=== PATIENT | male | born 1970 | race Caucasian/White ===

== ENCOUNTER 2017-02-25 01:19 | Emergency (ER) | payer OTHER ==
[2017-02-25] MEDS ORDERED: Naproxen 500 MG TAB ONE (02:06)
[2017-02-25] MEDS ORDERED: HYDROcodone/Acetaminophen 10/325 mg Tablet ONE (02:06)
[2017-02-25] MEDS ORDERED: Diazepam 5 MG TAB ONE (02:06)
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
== END 2017-02-25 02:48 | disposition home or self-care (01) ==
LOC: MADERS 01:19
DX: S39.012A Strain of muscle, fascia and tendon of lower back, initial encounter (principal); I10 Essential (primary) hypertension; Z87.891 Personal history of nicotine dependence; X50.9XXA Other and unspecified overexertion or strenuous movements or postures, initial encounter; Y93.02 Activity, running
CPT/HCPCS: 72131

== ENCOUNTER 2017-05-06 21:48 | Emergency (ER) | payer OTHER | END 2017-05-06 22:22 | disposition home or self-care (01) | LOC: MADERS 21:48 | DX: J11.1 Influenza due to unidentified influenza virus with other respiratory manifestations (principal); I10 Essential (primary) hypertension; Z87.891 Personal history of nicotine dependence; Z79.899 Other long term (current) drug therapy | CPT/HCPCS: 99283 ==

== ENCOUNTER 2017-06-17 09:00 | Emergency (ER) | payer OTHER ==
[2017-06-17] MEDS ORDERED: Ketorolac Tromethamine 60 MG/2 ML VIAL ONE (09:35)
--- NOTE | 2017-06-17 09:43 | RAD ---
PORTABLE CHEST: Date: 06/17/17 HISTORY: Chest pain. FINDINGS: Heart size and mediastinum are within normal limits. The lungs are clear of infiltrates. No significa nt bony findings. IMPRESSION: No active intrathoracic disease. POS: [facility]
[2017-06-17 09:46] LABS: #Basophils 0.1 thou/uL (0.0-0.2); #Eosinphils 0.1 thou/uL (0.0-0.7); #Lymphocytes 1.4 thou/uL (1.20-3.40); #Monocytes 0.7 thou/uL (0.11-0.59); #Neutrophils 4.1 thou/uL (1.40-6.50); %Basophils 0.9 % (0.0-1.0); %Eosinophils 1.3 % (0.0-10.0); %Lymphocytes 22.4 % (21.0-51.0); %Monocytes 10.3 % (0.0-10.0); Hemoglobin 16.1 g/dL (14.0-18.0); Mean Corpuscular HGB CONC 34.3 g/dL (32.0-36.0); Mean Corpuscular Hemoglobin 30.9 pg (27.0-31.0); Mean Corpuscular Volume 90.2 fl (80.0-94.0); Mean Platelet Volume 7.3 fL (7.4-10.4); Platelet Count 238 thou/uL (130-400); RBC Distribution Width 10.9 % (11.5-14.5); Red Blood Cell (RBC) Count 5.19 mill/uL (4.70-6.10); White Blood Cell (WBC) Count 6.4 thou/uL (4.8-10.8)
[2017-06-17 10:02] LABS: ALT (SGPT) 29 U/L (8-55); AST (SGOT) 20 U/L (5-34); Albumin 4.3 g/dL (3.5-5.0); Alkaline Phosphatase 66 U/L (40-150); Anion Gap 13 mmol/L (10-20); BUN (Urea Nitrogen) 9 mg/dL (8.9-20.6); Calc. Creatinine Clearance 0 mL/min (70-130); Calcium 10.1 mg/dL (7.8-10.44); Carbon Dioxide 25 mmol/L (22-29); Chloride 105 mmol/L (98-107); Estimated GFR-MDRD Greater than 90; Globulin 3.1 g/dL (2.4-3.5); Glucose 106 mg/dL (70-105); Lipase 49 U/L (8-78); Potassium 4.4 mmol/L (3.5-5.1); Protein, Total 7.4 g/dL (6.0-8.3); Sodium 139 mmol/L (136-145)
--- NOTE | 2017-06-17 10:24 | ULT ---
GALLBLADDER ULTRASOUND: Date: 06/17/17 HISTORY: Right upper quadrant pain. FINDINGS: The liver demonstrates increased echogenicity consistent with fatty infiltration. No focal mass or in trahepatic ductal dilatation is seen. No gallstones, gallbladder wall thickening, or pericholecystic fluid is seen. The common duct measures 5.0 mm in diameter. The right kidney and visualized portions of the pancreas are unremarkable. No free fluid is seen in Morison's pouch. The repair miller reports a positive Desouza's sign. IMPRESSION: 1. Fatty liver. 2. No evidence of cholelithiasis. 3. Positive Desouza's sign reported by repair miller. If there is concern for acute cholecystitis, furt her evaluation with HIDA scan should be performed. POS: [facility]
[2017-06-17 10:29] LABS: Bilirubin Negative (Negative); Blood, Urine Negative (Negative); Clarity Clear (Clear); Glucose, Urine (Dipstick) Negative (Negative); Leukocyte Negative (Negative); Nitrite Negative (Negative); Protein, Urine (Dipstick) Negative (Neg-Trace); Specific Gravity, Urine 1.025 (1.005-1.030); Urobilinogen 0.2 mg/dL (0.2-1.0)
== END 2017-06-17 10:30 | disposition home or self-care (01) ==
LOC: MADERS 09:00
DX: K82.8 Other specified diseases of gallbladder (principal); I10 Essential (primary) hypertension; Z79.899 Other long term (current) drug therapy
CPT/HCPCS: 71045; 76705; 80053; 81003; 83690; 85025; 96372; J1885

== ENCOUNTER 2019-06-07 08:12 | Emergency (ER) | payer OTHER ==
[2019-06-07 09:23] LABS: #Basophils 0.1 thou/uL (0.0-0.2); #Eosinphils 0.1 thou/uL (0.0-0.7); #Lymphocytes 1.4 thou/uL (1.20-3.40); #Monocytes 0.6 thou/uL (0.11-0.59); %Eosinophils 1.4 % (0.0-10.0); %Lymphocytes 22.6 % (21.0-51.0); %Monocytes 10.2 % (0.0-10.0); %Neutrophils 63.8 % (42.0-75.0); Hemoglobin 16.9 g/dL (14.0-18.0); Mean Corpuscular HGB CONC 32.2 g/dL (32.0-36.0); Mean Corpuscular Hemoglobin 29.3 pg (27.0-31.0); Mean Corpuscular Volume 90.9 fL (78.0-98.0); Mean Platelet Volume 7.8 fL (7.4-10.4); Platelet Count 239 thou/uL (130-400); RBC Distribution Width 10.9 % (11.5-14.5); Red Blood Cell (RBC) Count 5.78 mill/uL (4.70-6.10); White Blood Cell (WBC) Count 6.2 thou/uL (4.8-10.8)
[2019-06-07 09:38] LABS: ALT (SGPT) 94 U/L (8-55); AST (SGOT) 38 U/L (5-34); Albumin 4.6 g/dL (3.5-5.0); Alkaline Phosphatase 77 U/L (40-110); Anion Gap 14 mmol/L (10-20); BUN (Urea Nitrogen) 7 mg/dL (8.9-20.6); Bilirubin, Total 0.6 mg/dL (0.2-1.2); Calc. Creatinine Clearance 0 mL/min (70-130); Calcium 10.9 mg/dL (7.8-10.44); Carbon Dioxide 29 mmol/L (22-29); Chloride 101 mmol/L (98-107); Estimated GFR-MDRD 89; Globulin 3.3 g/dL (2.4-3.5); Glucose 94 mg/dL (70-105); Lipase 55 U/L (8-78); Potassium 4.3 mmol/L (3.5-5.1); Protein, Total 7.9 g/dL (6.0-8.3); Sodium 140 mmol/L (136-145)
[2019-06-07] MEDS ORDERED: Sodium Chloride 0.9% 1,000 ML ONE (09:42)
[2019-06-07] MEDS ORDERED: Morphine 4 MG/ML VIAL ONE (09:42)
[2019-06-07 10:10] LABS: Bilirubin Negative (Negative); Blood, Urine Negative (Negative); Clarity Clear (Clear); Glucose, Urine (Dipstick) Negative (Negative); Leukocyte Negative (Negative); Nitrite Negative (Negative); Protein, Urine (Dipstick) Negative (Neg-Trace); Urobilinogen 0.2 mg/dL (Less than 2)
[2019-06-07] MEDS ORDERED: Iopamidol 370 76% 100 ML VIAL ONE (10:20)
--- NOTE | 2019-06-07 11:34 | CT ---
EXAM: Abdomen and pelvic CT scan with contrast: HISTORY: Right upper quadrant abdominal pain COMPARISON: None FINDINGS: The visualized lung bases are clear. Liver: Unremarkable. Gallbladder:Minimal increased attenuation density at the neck of the gallbladder possibly just a gall bladder fold although be difficult to exclude a small gallstone but no CT evidence for acute cholecystitis. Pancreas:Unremarkable Spleen:Unremarkable. Adrenal glands:Unremarkable. Kidneys:No renal calculus or acute obstruction. No solid or cystic renal mass. No evidence for bowel obstruction. No CT evidence for acute appendicitis. The urinary bladder is unremarkable. Reproductive system:Unremarkable No abscess, adenopathy, or abnormal fluid collection within the abdomen or pelvis. Bilateral fat-containing inguinal hernias. IMPRESSION: No significant acute process. Findings as above.
== END 2019-06-07 12:05 | disposition short-term general hospital (02) ==
LOC: MADERS 08:12
DX: R10.11 Right upper quadrant pain (principal); F43.10 Post-traumatic stress disorder, unspecified; I10 Essential (primary) hypertension; Z79.1 Long term (current) use of non-steroidal anti-inflammatories (NSAID); Z79.899 Other long term (current) drug therapy
CPT/HCPCS: 36415; 74177; 80053; 81003; 83605; 83690; 85025; 96374; J2270; J7050; Q9967

== ENCOUNTER 2021-09-22 20:28 | Emergency (ER) | payer OTHER ==
[2021-09-22] MEDS ORDERED: Boostrix 0.5 ML (Tdap) VIAL ONE (21:43)
[2021-09-22] MEDS ORDERED: Ibuprofen 800 MG TAB ONE (21:52)
== END 2021-09-22 22:00 | disposition home or self-care (01) ==
LOC: MADERS 20:28
DX: S46.012A Strain of muscle(s) and tendon(s) of the rotator cuff of left shoulder, initial encounter (principal); S00.83XA Contusion of other part of head, initial encounter; S10.91XA Abrasion of unspecified part of neck, initial encounter; Y04.0XXA Assault by unarmed brawl or fight, initial encounter; Z23 Encounter for immunization; I10 Essential (primary) hypertension; Z79.899 Other long term (current) drug therapy
CPT/HCPCS: 90471; 90715

== ENCOUNTER 2022-06-01 12:55 | Emergency (ER) | payer OTHER ==
[2022-06-01 13:29] LABS: #Basophils 0.1 thou/uL (0.0-0.2); #Lymphocytes 1.6 thou/uL (1.20-3.40); #Monocytes 0.5 thou/uL (0.11-0.59); %Eosinophils 0.7 % (0.0-10.0); %Lymphocytes 25.8 % (21.0-51.0); %Monocytes 8.3 % (0.0-10.0); %Neutrophils 64.2 % (42.0-75.0); Hemoglobin 16.5 g/dL (14.0-18.0); Mean Corpuscular HGB CONC 34.2 g/dL (32.0-36.0); Mean Corpuscular Hemoglobin 30.6 pg (27.0-31.0); Mean Corpuscular Volume 89.6 fl (78.0-98.0); Mean Platelet Volume 6.4 fL (7.4-10.4); Platelet Count 213 10x3/uL (130-400); RBC Distribution Width 10.2 % (11.5-14.5); Red Blood Cell (RBC) Count 5.39 mill/uL (4.70-6.10); White Blood Cell (WBC) Count 6.2 10x3/uL (4.8-10.8)
[2022-06-01 13:44] LABS: ALT (SGPT) 21 U/L (8-55); AST (SGOT) 16 U/L (5-34); Albumin 4.6 g/dL (3.5-5.0); Alkaline Phosphatase 63 U/L (40-110); Anion Gap 17 mmol/L (10-20); BUN (Urea Nitrogen) 9 mg/dL (8.4-25.7); Calc. Creatinine Clearance 0 mL/min (70-130); Calcium 10.2 mg/dL (7.8-10.44); Carbon Dioxide 25 mmol/L (22-29); Chloride 103 mmol/L (98-107); Estimated GFR 88; Globulin 2.7 g/dL (2.4-3.5); Glucose 134 mg/dL (70-105); Potassium 3.9 mmol/L (3.5-5.1); Protein, Total 7.3 g/dL (6.0-8.3); Sodium 141 mmol/L (136-145)
[2022-06-01 13:45] LABS: Acetaminophen Less than 10.0 mcg/mL (10.0-30.0); Alcohol Less than 10 mg/dL (Less than 10); Magnesium 2.1 mg/dL (1.6-2.6); Salicylate Less than 8.0 mg/dL (15.0-30.0)
[2022-06-01 14:00] LABS: Bilirubin Negative (Negative); Blood, Urine Negative (Negative); Clarity Clear (Clear); Glucose, Urine (Dipstick) Negative (Negative); Ketone, Urine Negative (Negative); Leukocyte Negative (Negative); Nitrite Negative (Negative); Protein, Urine (Dipstick) Negative (Neg-Trace); Urobilinogen 0.2 mg/dL (Less than 2)
[2022-06-01 14:00] LABS: Base Excess-Venous 3.7 mmol/L (-2.0 to 3.0); Bicarbonate (HCO3v) 29.6 mmol/L (22.0-28.0); CO2 Tension (PvCO2) 47.8 mmHg (42.0-51.0); Calcium, Ionized 1.24 mmol/L (1.15-1.33); Chloride 105 mmol/L (98-107); Hemoglobin - Calc 17.5 g/dL (14.0-18.0); Potassium 3.7 mmol/L (3.5-5.1); Sodium 142 mmol/L (138-145); T. Carbon Dioxide 31.1 mmol/L (22.0-28.0); vO2 Saturation-calc 99.5 % (60.0-85.0)
[2022-06-01 14:11] LABS: Amphetamine Not Detected (NotDetected); Barbiturates Screen Not Detected (NotDetected); Benzodiazepine Screen Not Detected (NotDetected); Cocaine Metabolite Screen Not Detected (NotDetected); Medtox Control Line Valid? VALID (VALID); Methadone Not Detected (NotDetected); Methamphetamine Not Detected (NotDetected); Opiate Screen Not Detected (NotDetected); Oxycodone Screen Not Detected (NotDetected); Phencyclidine (PCP) Not Detected (NotDetected); THC/Cannabinoid Screen Not Detected (NotDetected); Tricyclic Screen Not Detected (NotDetected)
[2022-06-01] MEDS ORDERED: Aspirin 325 MG TAB ONE (14:11)
[2022-06-01 16:20] LABS: Troponin I Less than 0.010 ng/mL (< 0.028)
== END 2022-06-01 17:00 | disposition home or self-care (01) ==
LOC: MADERS 12:55
DX: R07.89 Other chest pain (principal); R41.0 Disorientation, unspecified; F10.20 Alcohol dependence, uncomplicated; I10 Essential (primary) hypertension; E78.00 Pure hypercholesterolemia, unspecified; F17.290 Nicotine dependence, other tobacco product, uncomplicated
CPT/HCPCS: 36416; 70450; 71045; 80053; 80306; 80307; 81003; 82330; 82803; 83735; 83880; 84484; 85025; 93005; 36415-59